=== PATIENT | female | born 1980 | race Caucasian/White ===

== ENCOUNTER 2020-05-21 01:16 | Outpatient (CLI) | payer OTHER, SELFPAY ==
[2020-05-21 19:02] LABS: SARS-CoV-2 RNA PCR Negative
== END 2020-05-21 01:17 | disposition home or self-care (01) ==
LOC: ANHCOVIDDT 01:17
PROVIDERS: PCP Internal Medicine; Visit Provider Obstetrics & Gynecology
DX: Z01.812 Encounter for preprocedural laboratory examination (principal); Z20.828 Contact with and (suspected) exposure to other viral communicable diseases
CPT/HCPCS: 87635; C9803; U0003

== ENCOUNTER 2020-05-23 00:44 | Day surgery (SDC) | payer OTHER, SELFPAY ==
[2020-05-13 10:57] VITALS: BMI 31.1
[2020-05-23] VITALS (8 sets, daily range): BP systolic 102–115; BP diastolic 68–83; PULSE 50–77; RESP 14–16; TEMP 36.1–36.6; O2SAT 98–100
[2020-05-23] MEDS: ACETAMINOPHEN 500 MG TABLET 1000 MG PO (09:44)
[2020-05-23] MEDS: LACTATED RINGERS 1,000 ML 30 ML IV CONT (09:58)
[2020-05-23] MEDS: KETOROLAC 15 MG/ML VIAL (*BKC) IV PUSH (10:00)
--- NOTE | 2020-05-23 11:02 | P.PNAN_ITS ---
Anes - Initial Pre Proc Eval Procedure: Operation Date: 05/23/20 11:30 Proposed Procedures p Laparoscopic Bilateral Salpingectomy - Heike Myers MD Date/Time: 05/23/20 11:02 Surgeon: Heike Myers MD Pre Op Diagnosis: Desires Sterilization Patient Data Age: 39 Gender: F Height: 5 ft 8 in Weight: 94 kg Last Vital Signs Temp 98 F 05/23/20 10:16 Pulse 77 05/23/20 10:16 Resp 16 05/23/20 10:16 BP 111/75 05/23/20 10:16 Pulse Ox 98 05/23/20 10:16 Allergies Allergy/AdvReac Type Severity Reaction Status Date / Time No Known Allergies Allergy Unknown Verified 05/23/20 09:36 Home Medications Medication Instructions Recorded Confirmed Type phentermine 37.5 mg PO DAILY 05/13/20 05/23/20 History Patient hx anesthesia problems: none Family hx anesthesia problems: none [facility] Past Medical History Medical History (Updated 05/23/20 @ 11:02 by Boy Andrews MD) Healthy adult Social History Social History Smoking packs per day: 1 Smoking cigarettes per day: 20.0 Years smoked: 15 Smoking pack-years: 15.00 Smoking status: Former smoker Tobacco type: cigarettes Additional smoking assessment comments: QUIT 6 YEARS AGO Alcohol intake: current Drinks per week: 2 Spiritual care concerns: No Anes - Eval Final PreProcedure Day of Procedure 05/23/20 11:02 Patient weight: overweight Heart: regular rate and rhythm Lungs: clear to auscultation Airway: Mallampati scale class II Neurological: alert and oriented Last oral intake: >/= 8 hours ASA classification: II Emergent: no Anesthetic plan: proceed Anesthesia type and monitoring: general ETT and standard monitoring Informed Consent: The patient's anesthetic plan and its attendant risks and benefits were discussed with the patient/family/POA. Questions were solicited and answers provided to the satisfaction of the patient/family/POA.
--- NOTE | 2020-05-23 11:09 | SUR.PREOP ---
Resting without needs or complaints.
--- NOTE | 2020-05-23 11:30 | PM.HPGS ---
History of Present Illness History of Present Illness Consent: Risks, benefits, and alternatives have been discussed and questions answered. Patient agrees to proceed with procedure. Chief complaint: Desires Sterilization Narrative: Geena Tinoco is a 39 year old female here to undergo sterilziation HPI Referral from [facility]. Wants tubal sterilization. Last child 12 yrs ago. No complications. Has FH of breast cancer. Discussed permanent sterilziation and options. She would like to proceedc with tubal salpingectomy ROS -DONOVAN, -Vis changes, -F/s/c, -hotflashes, -nightsweats -CP, -palpitations, -irregular heart beats -SOB, -Cough/wheeze -Abdominal pain, -diarrhea/constipation -Vaginal discharge, -bleeding, -ulcerations or masses -New skin lesions, -dryness, -hairloss -trouble ambulation, -vertigo, -dizziness, -muscle weakeness, -joint pains -depression/anxiety, -suicidal/homicidal ideation, -hallucinations PMHx No known medical problems PSHx Appendectomy FHx No family history has been documented for this patient Soc Hx Tobacco: Former smoker Alcohol: Occasional drink Drug Abuse: No illicit drug use Cardiovascular: Eat healthy meals / Regular exercise Safety: Household Smoke detector / Wear seatbelts Sexual Activity: Sexually active Gender: Female Ob Preg Hx Ob History: Age of menses:11 G2 T2 L2 Medications (Medication reconciliation performed by HEIKE MYERS 09:13 AM 13 Apr 2020 Last updated) CICLOPIROX NAIL LACQUER 8 % SOLN (Edited by DIGNA MARCUS on Oct, at 07:00 PM ) Allergies No known medication allergies (Allergy reconciliation performed by HEIKE MYERS 09:13 AM 13 Apr 2020 Last updated) Review of Systems Review of Systems: Narrative: ROS -DONOVAN, -Vis changes, -F/s/c, -hotflashes, -nightsweats -CP, -palpitations, -irregular heart beats -SOB, -Cough/wheeze -Abdominal pain, -diarrhea/constipation -Vaginal discharge, -bleeding, -ulcerations or masses -New skin lesions, -dryness, -hairloss -trouble ambulation, -vertigo, -dizziness, -muscle weakeness, -joint pains -depression/anxiety, -suicidal/homicidal ideation, -hallucinations PMFSH Past Medical History Medical History Healthy adult Social History Social History Smoking packs per day: 1 Smoking cigarettes per day: 20.0 Years smoked: 15 Smoking pack-years: 15.00 Smoking status: Former smoker Tobacco type: cigarettes Additional smoking assessment comments: QUIT 6 YEARS AGO Alcohol intake: current Drinks per week: 2 Spiritual care concerns: No Meds Home Medications and Allergies Home Medications Medication Instructions Recorded Confirmed Type phentermine 37.5 mg PO DAILY 05/13/20 05/23/20 History Allergies Allergy/AdvReac Type Severity Reaction Status Date / Time No Known Allergies Allergy Unknown Verified 05/23/20 09:36 Vital Signs Vital Signs - 24 hr 05/23/20 10:16 Temperature 36.6 C Pulse Rate 77 Respiratory Rate 16 Blood Pressure 111/75 Pulse Oximetry 98 Exam Narrative: Exam Narrative: Vitals 11 Apr 2020 - 03:30 PM - recorded by Rubi Perez BP: 125.0 / 77.0 HR: 89.0 bpm Temp: 98.0 ?F Ht/Lt: 5' 8 Wt: 214 lbs 8 oz BMI: 32.61 EXAM GEN: NAD RESP: lungs clear to auscultation bilaterally, no rales, wheezes or rhonchi CV: RRR, no m/r/g GI: +BS, nontender to palpation EXT: no cyanosis/clubbing/edema NEURO: AO x 3 PSYCH: judgment/insight intact, NL mood/affect Assessment and Plan Additional Plan Assessment Sterilization requested (situation) (Z30.2/V25.2) Encounter for sterilization modified May, Plan Sterilization requested (situation) Discussed laparoscopic bilateral salpingectomy for permanent sterilization. Risk/benefits/alternatives discussed. plan is to move forward with this HEIKE MYERS M.D.
--- NOTE | 2020-05-23 11:32 | WPDHPUPDATE1 ---
History and Physical Update Update Date/Time: 05/23/20 11:32 History and Physical has been reviewed, including an updated exam of the patient. There are NO changes in the patient's condition. Risks, benefits, and alternatives have been discussed and questions answered. Patient agrees to proceed with procedure.
[2020-05-23] MEDS: BUPIVACAINE/EPINEPHRINE 0.5% 10 ML VIAL INFILTRATE (12:10)
--- NOTE | 2020-05-23 12:28 | PM.PROC ---
Procedure Note - Detailed Date of procedure: 05/23/20 Pre-op diagnosis: Desires Sterilization Post-op diagnosis: same Procedure performed: laparoscopic bilateral salpingectomy Description of procedure: The patient was taken to the operating room where general anesthesia was found to be adequate. She was then prepared and draped in the dorsal lithotomy position in [facility]. Polk catheter inserted. A speculum was used to visualize the cervix and a single toothed tenaculum was placed on the anterior lip. An acorn uterine manipulator was placed within the cervix and affixed to the tenaculum. Speculum removed. Attention was then turned to the umbilicus which was injected with 0.5% marcaine with epinephrine in the infraumbilical fold. An incision was made with a scalpel and subcutaneous tissue dissected with hemostat. A veres needle used to enter into the peritoneal cavity and saline drop test was positive for entry. Pneumoperitoneum was created with CO2 to 15mmHg. A 5mm port was then placed with optical entry and camera inserted. There were no adhesions. The patient was then placed in Trendelenberg and the uterus/tubes and ovaries elevated and inspected and appeared normal. A left and right lower quadrant port was placed 3 fingerbreadths medial to the ASIS on both sides. Ligasure was used to remove the left fallopian tube by cauterizing the tuboovarian ligament all the way to the base and transecting it at its base. Once amputated it was pulled through the 5mm port. Similarly the right tube was removed in a similar fashion. There was good hemostasis. The pneumoperitoneum was released and the 5mm ports removed. All instruments were then removed from the vagina and tenaculum sites were hemostatic. The polk catheter was removed. The patient tolerated the procedure well. All sponge lap and needle counts were correct. Anesthesia: GETA Surgeon: Heike Myers MD Estimated blood loss (mL): 1 Drains: No Packing: No Pathology: yes (tubes bilaterally) Complications: No immediate complications Condition: stable Disposition: PACU Findings: normal tubes and ovaries and uterus. No abdominal adhesions
--- NOTE | 2020-05-23 14:20 | SUR.PHASEII ---
PT C/O MILD NAUSEA. STATES SHE FEELS SHE NEEDS TO EAT. REFUSING CRACKERS. DR VELASQUEZ NOTIFIED.
[2020-05-23] MEDS: ONDANSETRON HCL ODT 4 MG TABLET PO (14:23)
[2020-05-23] MEDS: SCOPOLAMINE 1.5 MG PATCH TRANSDERM (14:25)
--- NOTE | 2020-05-23 14:33 | SUR.PHASEII ---
PT C/O BILAT SHOULDER PAIN. REFUSING PAIN MEDICINE AT THIS TIME. WARM BLANKET WRAPPED AROUND SHOULDERS FOR COMFORT. PT UPDATED SIG OTHER.
--- NOTE | 2020-05-23 14:49 | SUR.PHASEII ---
DC INSTRUCTIONS WERE GIVEN. PT RESTING QUIETLY. STATES RELIEF OF NAUSEA. C/O BILAT SHOULDER SORENESS. REFUSING PAIN MEDICINE AT THIS TIME.
--- NOTE | 2020-05-23 15:10 | SUR.PHASEII ---
REPORT GIVEN TO MARYELLEN GARRISON RN
== END 2020-05-23 15:34 | disposition home or self-care (01) ==
PROVIDERS: PCP Internal Medicine; Visit Provider Obstetrics & Gynecology
PROC: (CPT 49320; principal; 2020-05-23 11:30)
DX: Z30.2 Encounter for sterilization (principal); N83.8 Other noninflammatory disorders of ovary, fallopian tube and broad ligament; Z87.891 Personal history of nicotine dependence
CPT/HCPCS: 58661; 88302; A9270; J0330; J1100; J1885; J2250; J2405; J2704; J3010; J7120

== ENCOUNTER → 2023-08-24 13:23 | Outpatient (CLI) | payer BC, SELFPAY ==
--- NOTE | ~2023-08-24 | MM_ITS ---
EXAMINATION: MM screening [facility] BI w [place] HISTORY: Screening mammogram TECHNIQUE: Craniocaudal and mediolateral oblique 3-D tomosynthesis images were obtained and synthetic 2-D images were generated. CAD analysis was submitted and interpreted. COMPARISON: None, baseline BREAST PARENCHYMAL COMPOSITION: There are scattered areas of fibroglandular density. FINDINGS: RIGHT BREAST: No suspicious mass, calcification, or architectural distortion are identified to sugges t malignancy. LEFT BREAST: An asymmetry is present in the middle third of the upper breast 9 cm from the nipple on the mediolateral oblique view. IMPRESSION: 1. Left breast asymmetry. 2. Additional mammographic views and possible breast ultrasound are recommended to evaluate the left breast asymmetry and establish a baseline given that this is the first mammographic examination. BI-RADS Category 0: Incomplete: Needs additional imaging evaluation. Reviewed, dictated and finalized at location A. NSMAN
== END ==
PROVIDERS: PCP Nurse Practitioner; Visit Provider Nurse Practitioner
DX: Z12.31 Encounter for screening mammogram for malignant neoplasm of breast (principal); R92.8 Other abnormal and inconclusive findings on diagnostic imaging of breast
CPT/HCPCS: 77063; 77067

== ENCOUNTER 2023-10-12 09:17 | Outpatient (CLI) | payer BC, SELFPAY ==
--- NOTE | ~2023-10-12 | MMUS_ITS ---
EXAMINATION: MM diagnostic [facility] LT w [place], US breast LT limited HISTORY: Left breast asymmetry reported in middle third of upper breast 9 cm from nipple line screeni ng MLO view of 08/24/2023. TECHNIQUE: Additional 3-D tomosynthesis images of the left breast were performed and synthetic 2-D im ages were generated. CAD analysis was submitted and interpreted. High resolution upper outer quadrant and upper inner quadrant left breast ultrasound was performed. COMPARISON: 08/24/2023 bilateral screening mammogram FINDINGS: MAMMOGRAPHIC FINDINGS: No suspicious mass is identified in the left breast. No architectural distortion. No microcalcificati ons, skin thickening or retraction. ULTRASOUND: Benign-appearing 8 x 19.5 mm lymph node is noted at 2:00 13 cm from the nipple. No suspicious mass or shadowing cysts, or other significant abnormality is noted in the upper inner or upper outer quadran ts of the left breast. IMPRESSION: 1. No evidence of malignancy 2. Routine annual mammographic screening is recommended. BI-RADS Category 1: Negative Reviewed, dictated and finalized at location A. IMPRESSION: 1. No evidence of malignancy 2. Routine annual mammographic screening is recommended. BI-RADS Category 1: Negative
== END 2023-10-12 09:18 ==
PROVIDERS: PCP Nurse Practitioner; Visit Provider Nurse Practitioner
DX: R92.2 Inconclusive mammogram (principal)
CPT/HCPCS: 76642; 77061; 77065; G0279